=== PATIENT | female | born 1985 | race American Indian/Alaskan Native ===

== ENCOUNTER 2020-03-13 13:34 | Outpatient (CLI) | payer OTHER ==
--- NOTE | 2020-03-13 16:44 | Ultrasound Report ---
ULTRASOUND-GUIDED CORE NEEDLE BIOPSY Right BREAST WITH CLIP PLACEMENT INDICATION: Right breast mass at the 8:00 position. FINDINGS: Informed consent was obtained. The mass within the right breast at the 8:00 position was identified w ith ultrasound. The overlying skin was cleansed with chloro prep and local anesthesia was obtained wi th a 1% lidocaine solution. Under ultrasound guidance a 14-gauge spring loaded core biopsy needle was advanced to the lesion. A total of 5 core samples were obtained. A U-shaped biopsy marker was placed to zenaida the site of the biopsy. Specimen samples were placed in formalin and sent to pathology for a nalysis. Patient tolerated the procedure well and no immediate complications were identified. A post procedure mammogram was not obtained given the young age of the patient, however the biopsy marker appears hilton ropriately positioned under ultrasound. IMPRESSION: Technically successful ultrasound guided biopsy of right breast mass at the 8:00 position with placem ent of an U shaped biopsy marker. An addendum will be added to this report once pathology results are available. Signer Name: Terry Gonzalez MD Signed: 03/13/2020 4:39 PM Workstation Name: [id number]
== END 2020-03-13 13:35 | disposition home or self-care (01) ==
LOC: SPVWC 13:34
PROVIDERS: ATTEND Nurse Practitioner Gerontology
DX: N63.13 Unspecified lump in the right breast, lower outer quadrant (principal); N60.31 Fibrosclerosis of right breast; N64.89 Other specified disorders of breast
CPT/HCPCS: 88305